=== PATIENT | female | born 1970 | race Two or more races ===

== ENCOUNTER 2020-04-24 11:34 | Emergency (ER) | payer OTHER ==
[~2020-04-24] VITALS: Ht 165.1 cm; Wt 74.8 kg
[2020-04-24] MEDS ORDERED: SYNTHROID75 MCG PO (11:48)
[2020-04-24] MEDS ORDERED: MEDROL4 MG PO (11:49)
== END 2020-04-24 16:44 | disposition home or self-care (01) ==
LOC: ER 11:34
DX: G44.89 Other headache syndrome (principal)

== ENCOUNTER 2021-03-29 14:21 | Emergency (ER) | payer OTHER ==
[~2021-03-29] VITALS: Ht 165.1 cm; Wt 74.8 kg
[~2021-03-29 14:21] MED LIST: MEDROL4 MG PO; SYNTHROID75 MCG PO
[2021-03-29] MEDS ORDERED: GABAPENTIN400 MG PO (14:36)
[2021-03-29] MEDS ORDERED: ZOLOFT100 MG PO (14:36)
== END 2021-03-29 20:45 | disposition home or self-care (01) ==
LOC: ER 14:21 → CPU-OBS 15:45 → ER 20:45
DX: R07.89 Other chest pain (principal); R51.9 Headache, unspecified; Z11.52 Encounter for screening for COVID-19
CPT/HCPCS: G0378; G0379; 93005; 70450